=== PATIENT | male | born 1965 | race African-American/Black ===

== ENCOUNTER 2017-11-01 10:16 | Emergency (ER) | payer MEDICAID ==
[2017-11-01] MEDS: IBUPROFEN 200 MG TAB PO (11:42)
[2017-11-01] MEDS: BACLOFEN 10 MG TAB PO (11:51)
== END 2017-11-01 13:00 | disposition home or self-care (01) ==
LOC: FTE 10:16
DX: M54.5 Low back pain (principal); G89.29 Other chronic pain; E11.9 Type 2 diabetes mellitus without complications
CPT/HCPCS: 99283; Z7502